=== PATIENT | female | born 1980 | race Caucasian/White ===

== ENCOUNTER 2017-06-24 18:29 | Emergency (ER) | payer BC ==
[~2017-06-24] VITALS: Ht 157.5 cm; Wt 67.1 kg
[~2017-06-24 18:29] MED LIST: PREVACID PO
[2017-06-24 21:30] VITALS: BP 144/104
== END 2017-06-24 21:30 | disposition home or self-care (01) ==
LOC: ED 18:29
DX: J06.9 Acute upper respiratory infection, unspecified (principal); R51 Headache; Z88.0 Allergy status to penicillin; Z88.5 Allergy status to narcotic agent; Z88.6 Allergy status to analgesic agent
CPT/HCPCS: Q0163